=== PATIENT | female | born 1980 | race Hispanic/Latino ===

== ENCOUNTER 2024-11-11 17:58 | Inpatient (IN) | payer OTHER ==
[~2024-11-11] VITALS: Ht 162.6 cm; Wt 62.1 kg
[2024-11-11 18:38] VITALS: RESP 17; TEMP 98.6
[2024-11-11 19:12] LABS: BASOPHILS # (AUTO) 0.1 (0.0-0.1); BASOPHILS % 0.9 % (0.0-1.0); EOSINOPHILS # (AUTO) 0.1 (0.0-0.4); HEMATOCRIT 36.2 % (34.2-44.1); HEMOGLOBIN 11.4 g/dL (12.0-16.0); LYMPHOCYTES # (AUTO) 1.2 (1.0-3.2); LYMPHOCYTES % 19.3 % (18.0-39.1); MEAN CORPUSCULAR HEMOGLOBIN 30.2 pg (28-32); MEAN CORPUSCULAR HGB CONC 31.5 g/dL (31-35); MONOCYTES # (AUTO) 0.4 (0.2-0.8); MONOCYTES % 6.9 % (4.4-11.3); NEUTROPHILS # (AUTO) 4.5 (2.1-6.9); NEUTROPHILS % 70.4 % (38.7-80.0); PLATELET COUNT 227 x10e3/uL (140-360); RED BLOOD COUNT 3.77 x10e6/uL (3.6-5.1); RED CELL DISTRIBUTION WIDTH 13.9 % (11.7-14.4); WHITE BLOOD COUNT 6.41 x10e3/uL (4.8-10.8)
[2024-11-11] MEDS: LEVOFLOXACIN 250 MG TAB PO SCH (19:13)
[2024-11-11] MEDS: MEROPENEM 1 GM in SODIUM CHLORIDE 0.9% 100 ML IV SCH (19:17)
[2024-11-11 19:30] VITALS: PULSE 79
[2024-11-11 19:35] LABS: ALBUMIN 3.9 g/dL (3.5-5.0); ALBUMIN/GLOBULIN RATIO 1.5 (0.8-2.0); ANION GAP 14.9 mmol/L (8-16); BILIRUBIN,TOTAL 0.3 mg/dL (0.2-1.2); CREATININE, SERUM 0.78 mg/dL (0.57-1.11); POTASSIUM 3.9 mmol/L (3.5-5.1); TOTAL PROTEIN 6.5 g/dL (6.5-8.1)
[2024-11-11] MEDS ORDERED: IOPAMIDOL 370 MG/ML 100 ML INFUS..BTL INJ ONE (19:41)
[2024-11-11] MEDS ORDERED: Morphine 4mg INJECTION 4 MG/ML INJ IV PRN (21:15)
[2024-11-11] MEDS ORDERED: ONDANSETRON HCL INJ 2MG/ML 2ML 2 MG/ML VIAL IV PRN (21:15)
[2024-11-11 22:30] VITALS: BP 131/74; PULSE 68; RESP 18; TEMP 98.6; O2SAT 100
[2024-11-11 22:31] VITALS: BP 131/74; PULSE 68; RESP 18; TEMP 98.6; O2SAT 100
[2024-11-11] MEDS ORDERED: SEROQUEL50 MG PO (22:37)
[2024-11-11] MEDS ORDERED: LATUDA40 MG PO (22:37)
[2024-11-11] MEDS ORDERED: CYMBALTA20 MG PO (22:37)
[2024-11-11] MEDS ORDERED: NEURONTIN100 MG PO (22:37)
[2024-11-11] MEDS ORDERED: CAPLYTA42 MG PO (22:37)
[2024-11-11] MEDS ORDERED: XANAX0.5 MG PO (22:38)
[2024-11-11] MEDS: SODIUM CHLORIDE 0.9% 1000ML 1,000 ML IV SCH (23:03)
[2024-11-12] VITALS (8 sets, daily range): BP systolic 94–133; BP diastolic 44–88; PULSE 71–85; RESP 16–20; TEMP 97.6–98.3; O2SAT 96–100
[2024-11-12 06:54] LABS: BASOPHILS # (AUTO) 0.1 (0.0-0.1); EOSINOPHILS # (AUTO) 0.2 (0.0-0.4); EOSINOPHILS % 3.7 % (0.0-6.0); HEMATOCRIT 36.1 % (34.2-44.1); HEMOGLOBIN 11.2 g/dL (12.0-16.0); LYMPHOCYTES # (AUTO) 1.5 (1.0-3.2); LYMPHOCYTES % 28.9 % (18.0-39.1); MEAN CORPUSCULAR HEMOGLOBIN 29.9 pg (28-32); MEAN CORPUSCULAR VOLUME 96.5 fL (81-99); MONOCYTES # (AUTO) 0.4 (0.2-0.8); MONOCYTES % 7.9 % (4.4-11.3); NEUTROPHILS % 58.3 % (38.7-80.0); PLATELET COUNT 212 x10e3/uL (140-360); RED BLOOD COUNT 3.74 x10e6/uL (3.6-5.1); RED CELL DISTRIBUTION WIDTH 14.2 % (11.7-14.4); WHITE BLOOD COUNT 5.09 x10e3/uL (4.8-10.8)
[2024-11-12 07:20] LABS: ALBUMIN 3.5 g/dL (3.5-5.0); ALBUMIN/GLOBULIN RATIO 1.5 (0.8-2.0); ANION GAP 13.1 mmol/L (8-16); BILIRUBIN,TOTAL 0.6 mg/dL (0.2-1.2); CALCIUM 8.5 mg/dL (8.4-10.2); CREATININE, SERUM 0.82 mg/dL (0.57-1.11); POTASSIUM 4.1 mmol/L (3.5-5.1); TOTAL PROTEIN 5.9 g/dL (6.5-8.1)
== END 2024-11-12 22:35 | disposition home or self-care (01) | DRG 863 ==
LOC: ER 18:47 → ERHOLD 21:11 → MED/SURG 22:05
PROVIDERS: ADMIT Internal Medicine; ATTEND Internal Medicine
PROC: 02HV33Z Insertion of Infusion Device into Superior Vena Cava, Percutaneous Approach (ICD-10-PCS; principal; 2024-11-12)
DX: T81.49XA Infection following a procedure, other surgical site, initial encounter (principal); A31.9 Mycobacterial infection, unspecified; L02.211 Cutaneous abscess of abdominal wall; Z16.24 Resistance to multiple antibiotics; M54.9 Dorsalgia, unspecified; F31.9 Bipolar disorder, unspecified; F41.9 Anxiety disorder, unspecified; Y84.8 Other medical procedures as the cause of abnormal reaction of the patient, or of later complication, without mention of misadventure at the time of the procedure
CPT/HCPCS: 36415; 36569; 71045; 74177; 80053; 84702; 85025; 87040; 94799; 99284; J2185; J7030; J7050; Q9967